=== PATIENT | female | born 1965 | race African-American/Black ===

== ENCOUNTER → 2016-10-19 | Outpatient (CLI) | payer MEDICARE, MEDICAID ==
[2016-10-19 09:40] LABS: HEMATOCRIT 35.9 % (36.0-47.0); HEMOGLOBIN 11.9 g/dL (12.0-15.5); HGB HCT DIFFERENCE -0.2; MEAN CORPUSCULAR HEMOGLOBIN 27.2 pg (27.0-33.4); MEAN CORPUSCULAR HGB CONC 33.2 g/dL (32.0-36.0); MEAN CORPUSCULAR VOLUME 82 fl (80-97); RED BLOOD COUNT 4.39 10^6/uL (3.72-5.28); RED CELL DISTRIBUTION WIDTH 13.7 % (11.5-14.0); WHITE BLOOD COUNT 10.8 10^3/uL (4.0-10.5)
== END ==
LOC: OD 08:04
PROVIDERS: ATTEND Specialist
DX: G40.89 Other seizures (principal); Z79.899 Other long term (current) drug therapy
CPT/HCPCS: 36415; 80164; 85027

== ENCOUNTER → 2017-02-18 | Outpatient (CLI) | payer MEDICARE, MEDICAID ==
--- NOTE | 2017-02-18 08:39 | RADIOLOGY REPORT (SQ) ---
EXAM DESCRIPTION: CHEST PA/LATERAL COMPLETED DATE/TIME: 02/18/2017 7:58 am REASON FOR STUDY: ELEVATED WHITE BLOOD CELL COUNT, UNSPECIFIED COMPARISON: None. NUMBER OF VIEWS: Two view. TECHNIQUE: Frontal and lateral radiographic views of the chest acquired. LIMITATIONS: None. FINDINGS: LUNGS AND PLEURA: Minimal haziness left lower lung zone. Atelectasis infiltrate possible . Best visualized on the lateral view. MEDIASTINUM AND HILAR STRUCTURES: No masses or contour abnormalities. HEART AND VASCULATURE: Heart normal size. No evidence for failure. BONY STRUCTURES: No acute findings. HARDWARE: None. OTHER: No other significant finding. IMPRESSION: Possible minimal atelectasis or infiltrate left lower lung zone. TECHNICAL DOCUMENTATION: JOB ID: [id number] [employer]- All Rights Reserved
== END ==
LOC: OD 07:46
PROVIDERS: ATTEND Family Medicine
DX: D72.829 Elevated white blood cell count, unspecified (principal)
CPT/HCPCS: 71020

== ENCOUNTER → 2017-05-19 | Outpatient (CLI) | payer MEDICARE, MEDICAID ==
[2017-05-19 09:50] LABS: HEMATOCRIT 37.7 % (36.0-47.0); HEMOGLOBIN 12.1 g/dL (12.0-15.5); HGB HCT DIFFERENCE -1.4; MEAN CORPUSCULAR HGB CONC 32.1 g/dL (32.0-36.0); MEAN CORPUSCULAR VOLUME 84 fl (80-97); RED BLOOD COUNT 4.49 10^6/uL (3.72-5.28); RED CELL DISTRIBUTION WIDTH 13.9 % (11.5-14.0); WHITE BLOOD COUNT 17.3 10^3/uL (4.0-10.5)
== END ==
LOC: OD 08:20
PROVIDERS: ATTEND Specialist
DX: G40.89 Other seizures (principal); Z79.899 Other long term (current) drug therapy
CPT/HCPCS: 36415; 80164; 85027

== ENCOUNTER → 2017-07-11 | Outpatient (CLI) | payer MEDICARE, MEDICAID ==
[2017-07-11 13:57] LABS: ANION GAP 6 (5-19); BLOOD UREA NITROGEN 19 mg/dL (7-20); CALCIUM 10.3 mg/dL (8.4-10.2); CARBON DIOXIDE 30 mmol/L (22-30); CHLORIDE 107 mmol/L (98-107); GLUCOSE 83 mg/dL (75-110); POTASSIUM 5.1 mmol/L (3.6-5.0); SODIUM 143.2 mmol/L (137-145)
== END ==
LOC: LAB 12:55
PROVIDERS: ATTEND Physician Assistant
DX: E87.5 Hyperkalemia (principal)
CPT/HCPCS: 36415; 80048

== ENCOUNTER → 2017-10-09 | Outpatient (CLI) | payer MEDICARE, MEDICAID ==
[2017-10-09 12:44] LABS: ANION GAP 13 (5-19); BLOOD UREA NITROGEN 17 mg/dL (7-20); CARBON DIOXIDE 27 mmol/L (22-30); CHLORIDE 105 mmol/L (98-107); GLUCOSE 127 mg/dL (75-110); POTASSIUM 4.4 mmol/L (3.6-5.0); SODIUM 145.2 mmol/L (137-145)
== END ==
LOC: OD 11:27
PROVIDERS: ATTEND Family Medicine
DX: E87.5 Hyperkalemia (principal); E87.0 Hyperosmolality and hypernatremia
CPT/HCPCS: 36415; 80048

== ENCOUNTER → 2017-11-29 | Outpatient (CLI) | payer MEDICARE, MEDICAID ==
[2017-11-29 10:29] LABS: HEMATOCRIT 36.4 % (36.0-47.0); HEMOGLOBIN 11.7 g/dL (12.0-15.5); MEAN CORPUSCULAR HEMOGLOBIN 26.8 pg (27.0-33.4); MEAN CORPUSCULAR HGB CONC 32.2 g/dL (32.0-36.0); MEAN CORPUSCULAR VOLUME 83 fl (80-97); PLATELET COUNT 165 10^3/uL (150-450); RED BLOOD COUNT 4.37 10^6/uL (3.72-5.28); RED CELL DISTRIBUTION WIDTH 14.3 % (11.5-14.0); WHITE BLOOD COUNT 18.5 10^3/uL (4.0-10.5)
== END ==
LOC: OD 08:23
PROVIDERS: ATTEND Specialist
DX: G40.89 Other seizures (principal); Z79.899 Other long term (current) drug therapy
CPT/HCPCS: 36415; 80164; 85027

== ENCOUNTER → 2018-04-10 | Outpatient (CLI) | payer MEDICARE, MEDICAID ==
--- NOTE | 2018-04-10 13:47 | RADIOLOGY REPORT (SQ) ---
EXAM DESCRIPTION: KUB COMPLETED DATE/TIME: 04/10/2018 1:30 pm REASON FOR STUDY: GROSS HEMATURIA R31.0 GROSS HEMATURIA COMPARISON: None. NUMBER OF VIEWS: One view. TECHNIQUE: Supine radiographic image of the abdomen acquired. LIMITATIONS: None. FINDINGS: BOWEL GAS PATTERN: Gas pattern is nonspecific. There is large amount of stool throughout the colon consistent with constipation. CALCIFICATIONS: No suspicious calcifications. SOFT TISSUES: No gross mass or suggestion of organomegaly. HARDWARE: None in the abdomen. BONES: No acute fracture. No worrisome bone lesions. OTHER: No other significant finding. IMPRESSION: Constipation. No other significant findings. TECHNICAL DOCUMENTATION: JOB ID: [id number] [employer]- All Rights Reserved Reading location - IP/workstation name: [email or web address]
[2018-04-10 13:53] LABS: HEMATOCRIT 35.6 % (36.0-47.0); HEMOGLOBIN 11.7 g/dL (12.0-15.5); MEAN CORPUSCULAR HEMOGLOBIN 27.4 pg (27.0-33.4); MEAN CORPUSCULAR VOLUME 83 fl (80-97); PLATELET COUNT 120 10^3/uL (150-450); RED BLOOD COUNT 4.28 10^6/uL (3.72-5.28); RED CELL DISTRIBUTION WIDTH 13.9 % (11.5-14.0); WHITE BLOOD COUNT 17.9 10^3/uL (4.0-10.5)
[2018-04-10 14:49] LABS: ABSOLUTE MONOCYTES # (MANUAL) 0.5 10^3/uL (0.1-1.4); ABSOLUTE NEUTROPHILS# (MANUAL) 3.4 10^3/uL (1.7-8.2); BAND NEUTROPHILS % (MANUAL) 1 % (3-5); BASOPHILS % (MANUAL) 0 % (0-2); EOSINOPHILS % (MANUAL) 0 % (0-6); MONOCYTES % (MANUAL) 3 % (3-13); SEGMENTED NEUTROPHILS % (MAN) 18 % (42-78); TOTAL CELLS COUNTED 100
[2018-04-10 14:52] LABS: HYPERSEGMENTED NEUTROPHILS PRESENT; LYMPHOCYTES % (MANUAL) 77 % (13-45); PLATELET COMMENT DECREASED
[2018-04-10 14:53] LABS: HYPOCHROMASIA SLIGHT; POLYCHROMASIA SLIGHT
[2018-04-13 11:31] LABS: PATH REVIEW PATHOLOGIST REVIEWED
== END ==
LOC: OD 12:47
PROVIDERS: ATTEND Physician Assistant
DX: R31.0 Gross hematuria (principal)
CPT/HCPCS: 36415; 74018; 85025

== ENCOUNTER 2018-04-11 09:28 | Emergency (ER) | payer MEDICARE, MEDICAID ==
[2018-04-11] MEDS ORDERED: IBUPROFEN 800 MG TABLET PO ONE (09:53)
--- NOTE | 2018-04-11 11:11 | ER Document Report ---
HPI - HPI Patient complains to provider of: L ankle injury Onset: Yesterday Onset/Duration: Sudden Quality of pain: Achy Pain Level: 5 Context: Pt presents c/o left ankle pain with swelling. Pt had a seizure yesterday and her mother attempted to help her to the floor. Mother states that ankle likely got twisted when she was having her seizure. 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 Patient does have a history of seizure disorder as well as cerebral palsy. Mother states that patient is going through menopause which is affecting how frequent she is having seizures and that this is her first seizure this month although patient typically gets 3 a month. Patient without any head injury, fever or recent illness. Exacerbated by: Movement Relieved by: Denies Similar symptoms previously: Yes Recently seen / treated by doctor: No - ROS ROS below otherwise negative: Yes Systems Reviewed and Negative: Yes All other systems reviewed and negative - CONSTITUTIONAL Constitutional: DENIES: Fever - NEURO Neurology: DENIES: Headache - GASTROINTESTINAL Gastrointestinal: DENIES: Patient vomiting - REPRODUCTIVE Reproductive: DENIES: : - MUSCULOSKELETAL Musculoskeletal: REPORTS: Extremity pain - left ankle with daniel wrap, Swelling - DERM Skin Color: Normal Skin Problems: None Past Medical History - General Information source: Parent Cannot obtain history due to: Mentally challenged - Social History Smoking Status: Never Smoker Frequency of alcohol use: None Drug Abuse: None Lives with: Family Family History: CAD, CVA, Hypertension, Malignancy Patient has suicidal ideation: No Patient has homicidal ideation: No - Medical History Medical History: Other - Cerebral palsy Neurological Medical History: Reports: Hx Seizures Renal/ Medical History: Denies: Hx Peritoneal Dialysis Musculoskeletal Medical History: Reports Hx Arthritis Surgical Hx: Negative - Immunizations Hx Diphtheria, Pertussis, Tetanus Vaccination: Yes Vertical Provider Document - CONSTITUTIONAL Agree With Documented VS: Yes Exam Limitations: No Limitations General Appearance: WD/WN, No Apparent Distress - INFECTION CONTROL TRAVEL OUTSIDE OF THE [place] IN LAST 30 DAYS: No - HEENT HEENT: Atraumatic, Normocephalic - NECK Neck: Normal Inspection - RESPIRATORY Respiratory: Breath Sounds Normal, No Respiratory Distress - CARDIOVASCULAR Cardiovascular: Regular Rate, Regular Rhythm Pulses: Normal: Dorsalis pedis - BACK Back: Normal Inspection - MUSCULOSKELETAL/EXTREMETIES Musculoskeletal/Extremeties: MAEW, Tender - Left ankle tenderness over bilateral malleolar area with 2+ edema, Edema, Eccymosis - NEURO Level of Consciousness: Awake, Alert, Appropriate Motor/Sensory: No Motor Deficit - DERM Integumentary: Warm, Dry Course - Vital Signs Vital signs: Temp Pulse Resp BP Pulse Ox 97.8 F 85 16 124/53 L 98 04/11/18 09:33 04/11/18 09:33 04/11/18 09:33 04/11/18 09:33 04/11/18 09:33 - Diagnostic Test Radiology reviewed: Image reviewed, Reports reviewed Procedures - Immobilization Left Ankle Pre-Proc Neuro Vasc Exam: Normal Immobilizer type: Posterior ankle Performed by: PCT Post-Proc Neuro Vasc Exam: Normal Alignment checked and good: Yes Discharge - Discharge Clinical Impression: Left fibular fracture Qualifiers: Encounter type: initial encounter Fibula location: distal Fracture type: closed Fracture morphology: unspecified fracture morphology Qualified Code(s): S82.832A - Other fracture of upper and lower end of left fibula, initial encounter for closed fracture Condition: Stable Disposition: HOME, SELF-CARE Instructions: Fracture ([facility]), Ice & Elevation ([facility]), Splint Precautions ([facility]) Additional Instructions: Return immediately for any new or worsening symptoms Followup with your primary care provider, call tomorrow to make a followup appointment Follow-up with your orthopedic surgeon for recheck, call Friday for an appointment time Prescriptions: Naproxen [Naprosyn 250 Nmg Tablet] 1 tab PO BID #14 tablet Referrals: MARYJANE SHIELDS PA [Primary Care Provider] - 04/13/18 FLORENCE SCHULER DPM [NO LOCAL MD] - 04/13/18
--- NOTE | 2018-04-11 11:14 | RADIOLOGY REPORT (SQ) ---
EXAM DESCRIPTION: ANKLE LEFT COMPLETE COMPLETED DATE/TIME: 04/11/2018 10:38 am REASON FOR STUDY: ankle injury after seizure COMPARISON: 11/20/2012 NUMBER OF VIEWS: Three views. TECHNIQUE: AP, lateral, and oblique radiographic images acquired of the left ankle. LIMITATIONS: None. FINDINGS: MINERALIZATION: Osteopenia. BONES: Chronic fracture deformity of the distal fibula and medial malleolus no acute fracture. Fract ure line of the distal fibula remains visible. Unchanged asymmetric widening of the medial ankle mor tise. Chronic deformity of the talar dome. 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 JOINTS: No effusions. SOFT TISSUES: Severe soft tissue swelling the ankle. No radiopaque foreign body. No subcutaneous ga s per OTHER: No other significant finding. IMPRESSION: 1. No acute fracture or dislocation of the left ankle. Severe soft tissue swelling. 2. 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 Old fracture of the distal malleolus. 3. Unchanged disruption of the ankle mortise. TECHNICAL DOCUMENTATION: JOB ID: [id number] [employer]- All Rights Reserved Reading location - IP/workstation name: [email or web address]
[2018-04-11 12:15] VITALS: BP 133/61
== END 2018-04-11 12:15 | disposition home or self-care (01) ==
LOC: ER 09:28
DX: S82.402A Unspecified fracture of shaft of left fibula, initial encounter for closed fracture (principal); X58.XXXA Exposure to other specified factors, initial encounter; G80.9 Cerebral palsy, unspecified; Z78.0 Asymptomatic menopausal state
CPT/HCPCS: 99283; 73610; 29515; A9270

== ENCOUNTER → 2018-06-01 | Outpatient (CLI) | payer MEDICARE, MEDICAID ==
[2018-06-01 08:50] LABS: HEMATOCRIT 35.6 % (36.0-47.0); HEMOGLOBIN 11.6 g/dL (12.0-15.5); MEAN CORPUSCULAR HEMOGLOBIN 26.9 pg (27.0-33.4); MEAN CORPUSCULAR HGB CONC 32.5 g/dL (32.0-36.0); MEAN CORPUSCULAR VOLUME 83 fl (80-97); PLATELET COUNT 148 10^3/uL (150-450); RED BLOOD COUNT 4.31 10^6/uL (3.72-5.28); RED CELL DISTRIBUTION WIDTH 14.5 % (11.5-14.0); WHITE BLOOD COUNT 14.5 10^3/uL (4.0-10.5)
[2018-06-01 09:25] LABS: ABSOLUTE MONOCYTES # (MANUAL) 0.1 10^3/uL (0.1-1.4); ABSOLUTE NEUTROPHILS# (MANUAL) 2.3 10^3/uL (1.7-8.2); BASOPHILS % (MANUAL) 0 % (0-2); EOSINOPHILS % (MANUAL) 0 % (0-6); MONOCYTES % (MANUAL) 1 % (3-13); SEGMENTED NEUTROPHILS % (MAN) 16 % (42-78); TOTAL CELLS COUNTED 100
[2018-06-01 09:28] LABS: ANISOCYTOSIS SLIGHT; LYMPHOCYTES % (MANUAL) 79 % (13-45); OVALOCYTES SLIGHT; PLATELET COMMENT DECREASED; POIKILOCYTOSIS SLIGHT; SMUDGE CELLS PRESENT; TEAR DROP CELLS SLIGHT
== END ==
LOC: OD 07:46
PROVIDERS: ATTEND Specialist
DX: G40.309 Generalized idiopathic epilepsy and epileptic syndromes, not intractable, without status epilepticus (principal); Z79.899 Other long term (current) drug therapy
CPT/HCPCS: 36415; 80164; 85025

== ENCOUNTER 2018-06-08 22:22 | Emergency (ER) | payer MEDICARE, MEDICAID ==
--- NOTE | 2018-06-08 23:03 | ER Document Report ---
ED General - General Chief Complaint: Hand Pain Stated Complaint: HAND PAIN Time Seen by Provider: 06/08/18 22:48 Notes: Patient is a 52-year-old female with cerebral palsy and seizure disorder that presents to the emergency department for chief complaint of head injury and hand pain. Mother providing history as a bedside, states that she noticed bruising on the patient's right forehead, and the backside of her right hand. She is not sure where this came from. She did not witness the seizure today, although the patient does seem to have 3 seizures on a monthly basis. She states it is possible that she had a seizure in the evening, the patient is not aware and does not remember having a seizure. She does not member hitting her head or hand. Patient is a poor historian given history of cerebral palsy as well. She does states she has pain in the back of her right hand, and the side of the head, but denies headache. She denies any blurred vision, or weakness or numbness in any of her arms or legs. She rates the pain in her hand at this time is a 2 out of 10, describes as an aching sensation, and constant. Past Medical History: Seizure disorder, cerebral palsy Past Surgical History: Reviewed and not pertinent to presentation Social History: Lives at home with family, no tobacco, alcohol or drug use. Family History: Reviewed and noncontributory for presenting illness Allergies: Reviewed, see documented allergy list. REVIEW OF SYSTEMS: Other than noted above, the 12 point review of systems was reviewed with the patient and were negative, all pertinent findings are included in the HPI. PHYSICAL EXAMINATION: Vital signs reviewed, nursing noted reviewed. GENERAL: Well-appearing, well-nourished and in no acute distress. HEAD: There is a small area of ecchymosis measuring 2-1/2 cm by 2-1/2 centimeters, just superior to the patient's right eyebrow, mild tenderness to palpation, without step-off or deformity, normocephalic. EYES: Eyes appear normal, extraocular movements intact, sclera anicteric, conjunctiva are normal. PERRLA ENT: nares patent, oropharynx clear without exudates. Moist mucous membranes. NECK: Normal range of motion, supple without lymphadenopathy, no midline tenderness LUNGS: Breath sounds clear to auscultation bilaterally and equal. No wheezes rales or rhonchi. HEART: Regular rate and rhythm without murmurs ABDOMEN: Soft, nontender, normoactive bowel sounds. No rebound, guarding, or rigidity. No masses appreciated. EXTREMITIES: Mild tenderness to palpation over the dorsal aspect of the third metacarpal phalangeal joint of the right hand, there is a small area of ecc hymosis over this area, patient has excellent range of motion, no obvious deformity. Strength intact distally, sensation intact distally, cap refill less than 3 seconds in all digits. The rest of her extremity is grossly unremarkable, and nontender, good range of motion, no pitting or edema. NEUROLOGICAL: No focal neurological deficits. Moves all extremities spontaneously Motor and sensory grossly intact on exam. PSYCH: Normal mood, normal affect. SKIN: Warm, Dry, normal turgor, no rashes or lesions noted on exposed skin TRAVEL OUTSIDE OF THE [place] IN LAST 30 DAYS: No - Related Data Allergies/Adverse Reactions: No Known Allergies Allergy (Verified 04/11/18 09:29) Past Medical History - Social History Smoking Status: Never Smoker Chew tobacco use (# tins/day): No Frequency of alcohol use: None Drug Abuse: None Family History: CAD, CVA, Hypertension, Malignancy Patient has suicidal ideation: No Patient has homicidal ideation: No Neurological Medical History: Reports: Hx Seizures Renal/ Medical History: Denies: Hx Peritoneal Dialysis Musculoskeletal Medical History: Reports Hx Arthritis - Immunizations Hx Diphtheria, Pertussis, Tetanus Vaccination: Yes Physical Exam - Vital signs Vitals: Temp Pulse Resp BP Pulse Ox 97.7 F 77 14 139/69 H 99 06/08/18 22:30 06/08/18 22:30 06/08/18 22:30 06/08/18 22:30 06/08/18 22:30 Course - Re-evaluation Re-evalutation: Patient appears well on exam, not complaining of significant pain, and appeared rather comfortable, will obtain CT of the head to evaluate for any possible intracranial injury as she is on aspirin, and unknown cause of her injury, and x-ray of the hand, if unremarkable, will be able to discharge the patient home. She is given Tylenol for pain. CT of the head was obtained and negative for any acute intracranial abnormality, and x-ray of the hand was negative as well. I discussed with the patient's mother who is at bedside the results of testing, and advised Tylenol for home, they were agreeable with this plan of care, advised that she had any worsening symptoms, that she could return to the emergency department at any time. They are agreeable with this, and discharged home. - Vital Signs Vital signs: Temp Pulse Resp BP Pulse Ox 98.0 F 66 17 128/57 H 97 06/09/18 00:46 06/09/18 00:46 06/09/18 00:46 06/09/18 00:46 06/09/18 00:46 Discharge - Discharge Clinical Impression: Head injury Qualifiers: Encounter type: initial encounter Qualified Code(s): S09.90XA - Unspecified injury of head, initial encounter Hand injury Qualifiers: Encounter type: initial encounter Laterality: right Qualified Code(s): S69.91XA - Unspecified injury of right wrist, hand and finger(s), initial encounter Condition: Stable Disposition: HOME, SELF-CARE Instructions: Head Injury Precautions ([facility]) Additional Instructions: You can give 500 to 650mg of tylenol every 6 hours as needed for pain. Referrals: MICHEL DEWITT MD [NO LOCAL MD] - Follow up in 3-5 days
[2018-06-08] MEDS ORDERED: ACETAMINOPHEN 325 MG TABLET PO ONE (23:04)
--- NOTE | 2018-06-08 23:30 | RADIOLOGY REPORT (SQ) ---
EXAM DESCRIPTION: XR HAND 3 OR MORE VIEWS COMPLETED DATE/TME: 06/08/2018 23:04 CLINICAL HISTORY: 52 years, Female, right hand injury COMPARISON: None. NUMBER OF VIEWS: 3 TECHNIQUE: 3 view right hand LIMITATIONS: None. FINDINGS: Negative for acute fracture or dislocation. Mild degenerative changes of the hand and wrist. Questionable old fracture of the ulnar styloid. IMPRESSION: No acute osseous abnormality. copyright 2010 [employer]- All Rights Reserved
--- NOTE | 2018-06-08 23:39 | RADIOLOGY REPORT (SQ) ---
EXAM DESCRIPTION: CT HEAD WITHOUT IV CONTRAST COMPLETED DATE/TME: 06/08/2018 23:03 CLINICAL HISTORY: 52 years, Female, head injury COMPARISON: None. TECHNIQUE: 199 Images stored on PACS. All CT scanners at this facility use dose modulation, iterative reconstruction, and/or weight based dosing when appropriate to reduce radiation dose to as low as reasonably achievable (ALARA). [facility]: Dose Right [facility]: CareDose [facility]: Dose Right [facility]: Teradose 4D [facility]: [employer] LIMITATIONS: None. FINDINGS: The globes are intact. The paranasal sinuses and mastoid air cells are unremarkable. No displaced or depressed skull fracture. No intra or extra-axial hemorrhage. CT is limited for evaluation of acute infarct. No CT evidence for large or territorial acute infarct. Mild diffuse atrophy. No mass or midline shift. IMPRESSION: Mild diffuse atrophy. Negative for acute intracranial abnormality. TECHNICAL DOCUMENTATION: Quality ID # [id number]: Final reports with documentation of one or more dose reduction techniques (e.g., Automated exposure control, adjustment of the mA and/or kV according to patient size, use of iterative reconstruction technique) copyright 2011 [employer]- All Rights Reserved
[2018-06-09 00:47] VITALS: BP 128/57
== END 2018-06-09 00:47 | disposition home or self-care (01) ==
LOC: ER 22:22
DX: S09.90XA Unspecified injury of head, initial encounter (principal); S69.91XA Unspecified injury of right wrist, hand and finger(s), initial encounter; X58.XXXA Exposure to other specified factors, initial encounter; G40.909 Epilepsy, unspecified, not intractable, without status epilepticus; G80.9 Cerebral palsy, unspecified
CPT/HCPCS: 99284; 73130; 70450; A9270

== ENCOUNTER → 2018-07-22 | Outpatient (CLI) | payer MEDICARE, MEDICAID ==
--- NOTE | 2018-07-22 14:46 | RADIOLOGY REPORT (SQ) ---
EXAM DESCRIPTION: MRI LT LOWER JOINT WITHOUT COMPLETED DATE/TIME: 07/22/2018 1:37 pm REASON FOR STUDY: PAIN IN LEFT KNEE M25.562 PAIN IN LEFT KNEE COMPARISON: None. TECHNIQUE: Leftknee images acquired and stored on PACS. Multiplanar images include fat sensitive se quences as T1, water sensitive sequences as FST2 or STIR, cartilage sensitive sequences as FSPD, and gradient echo sequences. LIMITATIONS: None. FINDINGS: JOINT AND BURSAE: Mild effusion. Circumscribed calcified nodule measuring 8 mm along the medial patellofemoral articulation, either intra-articular or adherent to the synovial surface. BONE CORTEX AND MARROW: Diffuse contusion edema throughout the lateral tibial plateau with probable n ondepressed posterior-lateral subchondral fracture. Marrow signal otherwise looks normal. ACL: Hyperintensity throughout the distal ACL. At least some fibers remain intact. PCL: Intact. MCL: Intact. No periligamentous edema or fluid. LCL: Edema and some attenuation of the proximal aspect of the fibular collateral ligament. Some fibe rs remain intact. MEDIAL MENISCUS: Diminutive appearance but no definitive tear or extrusion. LATERAL MENISCUS: Possible degenerative signal in the anterior horn. MEDIAL COMPARTMENT: No focal chondral lesions. LATERAL COMPARTMENT: No focal chondral lesions. PATELLA: No chondromalacia. No subchondral cysts. Medial and lateral retinacula intact. EXTENSOR MECHANISM: Intact. Quadriceps and patella tendons normal. SOFT TISSUES: Small Jesus's cyst. OTHER: No other significant finding. IMPRESSION: 1. Contusion in mild nondepressed subchondral fracture throughout the lateral tibial plateau. 2. ACL and lateral collateral ligament sprains. At least some fibers remain intact in both these lig aments. 3. Other findings as above. TECHNICAL DOCUMENTATION: JOB ID: [id number]- All Rights Reserved Reading location - IP/workstation name: [email or web address]
== END ==
LOC: RAD 12:38
PROVIDERS: ATTEND Physician Assistant
DX: M25.562 Pain in left knee (principal)

== ENCOUNTER → 2018-11-27 | Outpatient (CLI) | payer MEDICARE, MEDICAID ==
[2018-11-27 08:57] LABS: HEMATOCRIT 33.5 % (36.0-47.0); HEMOGLOBIN 10.8 g/dL (12.0-15.5); MEAN CORPUSCULAR HGB CONC 32.3 g/dL (32.0-36.0); MEAN CORPUSCULAR VOLUME 81 fl (80-97); PLATELET COUNT 225 10^3/uL (150-450); RED BLOOD COUNT 4.15 10^6/uL (3.72-5.28); RED CELL DISTRIBUTION WIDTH 14.4 % (11.5-14.0); WHITE BLOOD COUNT 12.9 10^3/uL (4.0-10.5)
[2018-11-27 09:24] LABS: ABSOLUTE LYMPHOCYTES# (MANUAL) 10.3 10^3/uL (0.5-4.7); ABSOLUTE MONOCYTES # (MANUAL) 0.5 10^3/uL (0.1-1.4); ABSOLUTE NEUTROPHILS# (MANUAL) 2.1 10^3/uL (1.7-8.2); BASOPHILS % (MANUAL) 0 % (0-2); EOSINOPHILS % (MANUAL) 0 % (0-6); LYMPHOCYTES % (MANUAL) 80 % (13-45); MONOCYTES % (MANUAL) 4 % (3-13); NUCLEATED RED BLOOD CELLS 1 /100 WBC (0); SEGMENTED NEUTROPHILS % (MAN) 16 % (42-78); TOTAL CELLS COUNTED 100
[2018-11-27 09:26] LABS: ANISOCYTOSIS SLIGHT; OVALOCYTES SLIGHT; PLATELET COMMENT ADEQUATE; PLATELET LARGE PRESENT; POIKILOCYTOSIS SLIGHT; POLYCHROMASIA SLIGHT
== END ==
LOC: OD 07:42
PROVIDERS: ATTEND Specialist
DX: G40.309 Generalized idiopathic epilepsy and epileptic syndromes, not intractable, without status epilepticus (principal); Z79.899 Other long term (current) drug therapy
CPT/HCPCS: 36415; 80164; 85025

== ENCOUNTER → 2019-05-28 | Outpatient (CLI) | payer MEDICARE, MEDICAID ==
[2019-05-28 09:42] LABS: HEMATOCRIT 37.4 % (36.0-47.0); HEMOGLOBIN 12.1 g/dL (12.0-15.5); MEAN CORPUSCULAR HEMOGLOBIN 26.5 pg (27.0-33.4); MEAN CORPUSCULAR HGB CONC 32.3 g/dL (32.0-36.0); MEAN CORPUSCULAR VOLUME 82 fl (80-97); PLATELET COUNT 172 10^3/uL (150-450); RED BLOOD COUNT 4.55 10^6/uL (3.72-5.28); WHITE BLOOD COUNT 21.9 10^3/uL (4.0-10.5)
[2019-05-28 10:35] LABS: ABSOLUTE LYMPHOCYTES# (MANUAL) 18.2 10^3/uL (0.5-4.7); ABSOLUTE MONOCYTES # (MANUAL) 0.9 10^3/uL (0.1-1.4); BASOPHILS % (MANUAL) 0 % (0-2); EOSINOPHILS % (MANUAL) 1 % (0-6); LYMPHOCYTES % (MANUAL) 83 % (13-45); MONOCYTES % (MANUAL) 4 % (3-13); SEGMENTED NEUTROPHILS % (MAN) 12 % (42-78); TOTAL CELLS COUNTED 100
[2019-05-28 10:36] LABS: PLATELET COMMENT ADEQUATE; RBC MORPHOLOGY COMMENT NORMO-CYTIC/CHROMIC; SMUDGE CELLS PRESENT
== END ==
LOC: OD 08:20
PROVIDERS: ATTEND Specialist
DX: G40.309 Generalized idiopathic epilepsy and epileptic syndromes, not intractable, without status epilepticus (principal); Z79.899 Other long term (current) drug therapy
CPT/HCPCS: 36415; 80164; 85025

== ENCOUNTER → 2019-11-23 | Outpatient (CLI) | payer MEDICARE, MEDICAID ==
[2019-11-23 08:49] LABS: HEMATOCRIT 34.7 % (36.0-47.0); HEMOGLOBIN 11.3 g/dL (12.0-15.5); MEAN CORPUSCULAR HGB CONC 32.6 g/dL (32.0-36.0); MEAN CORPUSCULAR VOLUME 83 fl (80-97); PLATELET COUNT 166 10^3/uL (150-450); RED BLOOD COUNT 4.19 10^6/uL (3.72-5.28); RED CELL DISTRIBUTION WIDTH 14.4 % (11.5-14.0); WHITE BLOOD COUNT 24.6 10^3/uL (4.0-10.5)
[2019-11-23 09:05] LABS: ABSOLUTE LYMPHOCYTES# (MANUAL) 21.4 10^3/uL (0.5-4.7); ABSOLUTE MONOCYTES # (MANUAL) 0.5 10^3/uL (0.1-1.4); BASOPHILS % (MANUAL) 0 % (0-2); EOSINOPHILS % (MANUAL) 0 % (0-6); LYMPHOCYTES % (MANUAL) 87 % (13-45); MONOCYTES % (MANUAL) 2 % (3-13); SEGMENTED NEUTROPHILS % (MAN) 11 % (42-78); TOTAL CELLS COUNTED 100
[2019-11-23 09:07] LABS: ANISOCYTOSIS SLIGHT; PLATELET COMMENT ADEQUATE; POLYCHROMASIA SLIGHT
== END ==
LOC: OD 07:52
PROVIDERS: ATTEND Specialist
DX: G40.309 Generalized idiopathic epilepsy and epileptic syndromes, not intractable, without status epilepticus (principal); Z79.899 Other long term (current) drug therapy
CPT/HCPCS: 36415; 80164; 85025

== ENCOUNTER → 2019-11-29 | Outpatient (CLI) | payer MEDICARE, MEDICAID ==
--- NOTE | 2019-11-29 12:00 | RADIOLOGY REPORT (SQ) ---
EXAM DESCRIPTION: U/S ABDOMEN COMPLETE W/O DOP IMAGES COMPLETED DATE/TIME: 11/29/2019 11:06 am REASON FOR STUDY: (K76.0)FATTY (CHANGE OF) LIVER, NOT ELSEWHERE CLASSIFIED K76.0 FATTY (CHANGE OF) LIVER, NOT ELSEWHERE CLASSIFIED COMPARISON: None. TECHNIQUE: Dynamic and static grayscale images acquired of the abdomen and recorded on PACS. Additio nal selected color Doppler and spectral images recorded. Note: Study does not meet criteria for complete doppler/duplex scan LIMITATIONS: None. FINDINGS: PANCREAS: The head and body of the pancreas are of normal echogenicity. The tail is obsc ured by overlying bowel gas. LIVER: The liver measures 14.4 cm in length, normal size. No masses. Echotexture normal. LIVER VASCULATURE: Normal directional flow of the main portal vein and hepatic veins. GALLBLADDER: No stones. The gallbladder wall measures 3.4 mm, mild diffuse gallbladder wall thickeni ng. No pericholecystic fluid. ULTRASOUND-DETECTED VALENCIA'S SIGN: Negative. INTRAHEPATIC DUCTS AND COMMON DUCT: CBD measures 2.7 mm in diameter, normal. The intrahepatic ducts normal caliber. No filling defects. INFERIOR VENA CAVA: Normal flow. AORTA: No aneurysm. RIGHT KIDNEY: The right kidney measures 9.4 x 4.9 x 4.6 cm, normal size. Normal echogenicity. A 2 .5 x 2.1 x 1.8 cm cyst. No hydronephrosis. No calcifications. LEFT KIDNEY: The left kidney measures 9.7 x 4.8 x 4.9 cm, normal size. Normal echogenicity. No s olid or suspicious masses. No hydronephrosis. No calcifications. SPLEEN: The spleen measures 7.9 cm in length, normal size. No solid masses. PERITONEAL AND PLEURAL SPACES: No ascites or effusions. OTHER: No other significant finding. IMPRESSION: 1. The tail of the pancreas is obscured by overlying bowel gas. 2. Right renal cyst. 3. Mild diffuse thickening of the gallbladder wall. No evidence of pericholecystic fluid or gallston es. TECHNICAL DOCUMENTATION: JOB ID: [id number] 2010 [employer]- All Rights Reserved Reading location - IP/workstation name: [email or web address]
== END ==
LOC: RAD 10:17
PROVIDERS: ATTEND Physician Assistant
DX: K76.0 Fatty (change of) liver, not elsewhere classified (principal); N28.1 Cyst of kidney, acquired
CPT/HCPCS: 76700

== ENCOUNTER → 2020-03-13 | Outpatient (CLI) | payer MEDICARE, MEDICAID ==
--- NOTE | 2020-03-13 14:43 | RADIOLOGY REPORT (SQ) ---
EXAM DESCRIPTION: U/S THYROID/SFT TISS HD NECK IMAGES COMPLETED DATE/TIME: 03/13/2020 2:16 pm REASON FOR STUDY: (E07.89)OTHER SPECIFIED DISORDERS OF THYROID E07.89 OTHER SPECIFIED DISORDERS OF THYROID COMPARISON: None. TECHNIQUE: Dynamic and static sapp-scale images acquired of the thyroid gland. Selected additional c olor/power Doppler images recorded. All images stored to PACS. LIMITATIONS: None. FINDINGS: RIGHT LOBE: Normal size, 3.3 cm. Homogeneous echotexture. No cystic or solid masses. LEFT LOBE: Normal size, 3.6 cm. Homogeneous echotexture. No cystic or solid masses. ISTHMUS: Normal size, 4 mm. Homogeneous echotexture. No cystic or solid masses. OTHER: No other significant finding. IMPRESSION: NORMAL THYROID ULTRASOUND. TECHNICAL DOCUMENTATION: JOB ID: [id number] 2010 [employer]- All Rights Reserved Reading location - IP/workstation name: [email or web address]
== END ==
LOC: RAD 13:48
PROVIDERS: ATTEND Physician Assistant
DX: E07.89 Other specified disorders of thyroid (principal)
CPT/HCPCS: 76536

== ENCOUNTER 2020-05-07 14:13 | Emergency (ER) | payer MEDICARE, MEDICAID ==
--- NOTE | 2020-05-07 15:52 | ER Document Report ---
ED Medical Screen (RME) - General Chief Complaint: Rib Pain Stated Complaint: COUGH, NOSE BLEED, FEVER Time Seen by Provider: 05/07/20 15:41 Primary Care Provider: MARYJANE PERKINS PA-C [Primary Care Provider] - Follow up as needed TRAVEL OUTSIDE OF THE [place] IN LAST 30 DAYS: No - HPI Notes: Patient is a 54-year-old female with a history of a seizure disorder who presents for fever for the past 3 days. Mother states patient had a seizure a week ago and fell and hit her right chest. She was seen at urgent care the following day and diagnosed with a hairline rib fracture. She was instructed to come to the ED if the patient began to have fever or cough. Mother states that the patient had a fever of 102 F last night and has started to have a cough. - Related Data Allergies/Adverse Reactions: No Known Allergies Allergy (Verified 05/07/20 15:34) Home Medications: depakote. vimpat. keppra. famotidine. asa. vitamin Past Medical History - Social History Chew tobacco use (# tins/day): No Frequency of alcohol use: None Drug Abuse: None Neurological Medical History: Reports: Hx Seizures Renal/ Medical History: Denies: Hx Peritoneal Dialysis Musculoskeltal Medical History: Reports Hx Arthritis - Immunizations Hx Diphtheria, Pertussis, Tetanus Vaccination: Yes Physical Exam - Vital signs Vitals: Temp Pulse Resp BP Pulse Ox 99.2 F 94 18 121/59 L 99 05/07/20 14:22 05/07/20 14:22 05/07/20 14:22 05/07/20 14:22 05/07/20 14:22 - Respiratory Respiratory status: No respiratory distress Breath sounds: Normal Course - Re-evaluation Re-evalutation: I have greeted and performed a rapid initial assessment of this patient. A comprehensive ED assessment and evaluation of the patient, analysis of test results and completion of medical decision making process will be conducted by an additional ED providers. - Vital Signs Vital signs: Temp Pulse Resp BP Pulse Ox 99.2 F 94 18 121/59 L 99 05/07/20 14:22 05/07/20 14:22 05/07/20 14:22 05/07/20 14:22 05/07/20 14:22 Doctor's Discharge - Discharge Referrals: MARYJANE PERKINS PA-C [Primary Care Provider] - Follow up as needed
--- NOTE | 2020-05-07 16:44 | RADIOLOGY REPORT (SQ) ---
EXAM DESCRIPTION: CHEST SINGLE VIEW IMAGES COMPLETED DATE/TIME: 05/07/2020 4:27 pm REASON FOR STUDY: rule out pneumonia COMPARISON: 01/05/2015 TECHNIQUE: Single frontal radiographic view of the chest acquired. NUMBER OF VIEWS: One view. LIMITATIONS: None. FINDINGS: LUNGS AND PLEURA: No pneumothorax. Small area patchy consolidation at the left lateral virgilio ng base. Right lung is clear. No significant Pleural effusion. MEDIASTINUM AND HILAR STRUCTURES: No contour abnormalities. HEART AND VASCULAR STRUCTURES: Heart normal size. BONES: No acute findings. HARDWARE: None in the chest. OTHER: No other significant finding. IMPRESSION: Small area patchy consolidation at the left lateral lung base. TECHNICAL DOCUMENTATION: JOB ID: [id number] 2010 [employer]- All Rights Reserved Reading location - IP/workstation name: [email or web address]
--- NOTE | 2020-05-07 18:00 | ER Document Report ---
ED General - General Chief Complaint: Rib Pain Stated Complaint: COUGH, NOSE BLEED, FEVER Time Seen by Provider: 05/07/20 15:41 Primary Care Provider: MARYJANE PERKINS PA-C [Primary Care Provider] - Follow up as needed TRAVEL OUTSIDE OF THE [place] IN LAST 30 DAYS: No - HPI Notes: 54-year-old female presents with cough and fever. Information is primarily obtained from patient's mother. About a week ago patient had a fall from standing, she was seen at urgent care and was diagnosed with a hairline rib fracture on one of her right ribs, this was done via x-ray. As part of the return precautions, patient was instructed to go to the emergency department if she developed a cough or fever. Patient's mother states that last night she had a fever of 102 and has been coughing. Patient states that she has pain when she coughs. She has been tolerating p.o., no vomiting or diarrhea. Mother had a recent Covid test which was negative last week. She states that patient rarely ever leaves the house or goes out in public. - Related Data Allergies/Adverse Reactions: No Known Allergies Allergy (Verified 05/07/20 15:34) Home Medications: depakote. vimpat. keppra. famotidine. asa. vitamin Past Medical History - General Information source: Patient, Parent - Social History Smoking Status: Never Smoker Chew tobacco use (# tins/day): No Frequency of alcohol use: None Drug Abuse: None Family History: CAD, CVA, Hypertension, Malignancy Patient has homicidal ideation: No Neurological Medical History: Reports: Hx Seizures Renal/ Medical History: Denies: Hx Peritoneal Dialysis Musculoskeletal Medical History: Reports Hx Arthritis - Immunizations Hx Diphtheria, Pertussis, Tetanus Vaccination: Yes Review of Systems - Review of Systems Constitutional: Fever EENT: No symptoms reported Cardiovascular: denies: Chest pain Respiratory: Cough, Hurts to breathe. denies: Short of breath Gastrointestinal: No symptoms reported Genitourinary: No symptoms reported Female Genitourinary: No symptoms reported Musculoskeletal: No symptoms reported Skin: No symptoms reported Hematologic/Lymphatic: No symptoms reported Neurological/Psychological: No symptoms reported Physical Exam - Vital signs Vitals: Temp Pulse Resp BP Pulse Ox 99.2 F 94 18 121/59 L 99 05/07/20 14:22 05/07/20 14:22 05/07/20 14:22 05/07/20 14:22 05/07/20 14:22 - General General appearance: Appears well, Alert In distress: None - HEENT Head: Normocephalic, Atraumatic Extraocular movements intact: Yes Pupils: PERRL Neck: Supple - Respiratory Breath sounds: Normal - Cardiovascular Rhythm: Regular Heart sounds: Normal auscultation - Abdominal Tenderness: Nontender - Extremities General lower extremity: No: Edema - Neurological Neuro grossly intact: Yes - Psychological Associated symptoms: Normal affect - Skin Skin Temperature: Warm Course - Re-evaluation Re-evalutation: 54-year-old female presents with cough and fever. Reportedly had a fall 1 week ago and had a "hairline fracture" diagnosed via chest x-ray at an urgent care. Patient is currently afebrile and hemodynamically stable. Her lungs are clear to auscultation. She has a leukocytosis present, which was seen on multiple previous values. However her chest x-ray does demonstrate a left basilar infiltrate. Suspect that she has community-acquired pneumonia. I have less concern for Covid at this time given that she really does not leave the house and mother has been recently tested negative. Patient is appropriate for outpatient treatment. She is on multiple antiepileptics, will research in order to provide the best medicines without interactions. 05/07/20 19:06 Per [employer], azithromycin does not interact with Depakote or Vimpat Patient was given a dose of Augmentin here. She was discharged with azithromycin and Augmentin, felt the dual treatment is indicated given her comorbidities. Patient encouraged to follow-up with her primary care doctor. Return precautions given, stable at time of discharge. - Vital Signs Vital signs: Temp Pulse Resp BP Pulse Ox 100.7 F H 98 16 126/51 H 98 05/07/20 19:38 05/07/20 19:38 05/07/20 19:38 05/07/20 19:38 05/07/20 19:38 - Laboratory Result Diagrams: 05/07/20 17:46 05/07/20 17:46 Laboratory results interpreted by me: 05/07/20 05/07/20 17:46 17:46 WBC 21.9 H Hgb 11.1 L Hct 33.6 L Seg Neuts % (Manual) 20 L Band Neutrophils % 2 L Lymphocytes % (Manual) 76 H Monocytes % (Manual) 2 L Abs Lymphs (Manual) 16.6 H Sodium 133.7 L Chloride 95 L Glucose 122 H AST 47 H - Diagnostic Test Radiology reviewed: Image reviewed, Reports reviewed Discharge - Discharge Clinical Impression: CAP (community acquired pneumonia) Qualifiers: Laterality: left Lung location: lower lobe of lung Qualified Code(s): J18.9 - Pneumonia, unspecified organism Disposition: HOME, SELF-CARE Additional Instructions: Begin course of antibiotics, azithromycin and Augmentin. Please call the primary care doctor and discuss a repeat x-ray at some point this week to assure that the pneumonia is improving. Return to the emergency department for any concerning worsening symptoms. Prescriptions: Amoxicillin/Potassium Clav [Augmentin 875-125 Tablet] 1 tab PO Q12 7 Days #14 tablet Azithromycin 250 mg PO ASDIR PRN 5 Days #6 tablet PRN Reason: Referrals: MARYJANE PERKINS PA-C [Primary Care Provider] - Follow up as needed
[2020-05-07 18:21] LABS: HEMATOCRIT 33.6 % (36.0-47.0); HEMOGLOBIN 11.1 g/dL (12.0-15.5); MEAN CORPUSCULAR HEMOGLOBIN 27.3 pg (27.0-33.4); MEAN CORPUSCULAR VOLUME 83 fl (80-97); PLATELET COUNT 154 10^3/uL (150-450); RED BLOOD COUNT 4.06 10^6/uL (3.72-5.28); WHITE BLOOD COUNT 21.9 10^3/uL (4.0-10.5)
[2020-05-07 18:36] LABS: ALBUMIN 4.2 g/dL (3.5-5.0); ALKALINE PHOSPHATASE 94 U/L (38-126); ANION GAP 13 (5-19); ASPARTATE AMINO TRANSFERASE 47 U/L (14-36); BILIRUBIN,DIRECT 0.2 mg/dL (0.0-0.4); BILIRUBIN,TOTAL 0.5 mg/dL (0.2-1.3); BLOOD UREA NITROGEN 14 mg/dL (7-20); CALCIUM 10.1 mg/dL (8.4-10.2); CARBON DIOXIDE 26 mmol/L (22-30); CHLORIDE 95 mmol/L (98-107); GLUCOSE 122 mg/dL (75-110); POTASSIUM 4.6 mmol/L (3.6-5.0); TOTAL PROTEIN 7.9 g/dL (6.3-8.2)
[2020-05-07 18:46] LABS: ABSOLUTE LYMPHOCYTES# (MANUAL) 16.6 10^3/uL (0.5-4.7); ABSOLUTE MONOCYTES # (MANUAL) 0.4 10^3/uL (0.1-1.4); BAND NEUTROPHILS % (MANUAL) 2 % (3-5); BASOPHILS % (MANUAL) 0 % (0-2); EOSINOPHILS % (MANUAL) 0 % (0-6); LYMPHOCYTES % (MANUAL) 76 % (13-45); MONOCYTES % (MANUAL) 2 % (3-13); SEGMENTED NEUTROPHILS % (MAN) 20 % (42-78); TOTAL CELLS COUNTED 100
[2020-05-07 18:48] LABS: ANISOCYTOSIS SLIGHT; PLATELET COMMENT ADEQUATE
[2020-05-07] MEDS ORDERED: AMOXICILLIN TR/POT CLAVULANATE 875-125 MG TAB PO ONE (19:04)
[2020-05-07] MEDS ORDERED: ACETAMINOPHEN 325 MG TABLET PO ONE (19:32)
[2020-05-07 19:39] VITALS: BP 126/51
== END 2020-05-07 19:51 | disposition home or self-care (01) ==
LOC: ER 14:13
DX: J18.9 Pneumonia, unspecified organism (principal); S22.31XD Fracture of one rib, right side, subsequent encounter for fracture with routine healing; W19.XXXD Unspecified fall, subsequent encounter; R05 Cough; R50.9 Fever, unspecified; R07.1 Chest pain on breathing; R56.9 Unspecified convulsions; Z79.899 Other long term (current) drug therapy; Z79.82 Long term (current) use of aspirin
CPT/HCPCS: 99284; 36415; 85025; 80053; 71045; A9270; J3490

== ENCOUNTER → 2020-05-10 | Outpatient (CLI) | payer MEDICARE, MEDICAID ==
--- NOTE | 2020-05-10 11:20 | RADIOLOGY REPORT (SQ) ---
EXAM DESCRIPTION: CHEST 2 VIEWS IMAGES COMPLETED DATE/TIME: 05/10/2020 10:45 am REASON FOR STUDY: J18.9 PNEUMONIA, UNSPECIFIED ORGANISM COMPARISON: 05/07/2020 EXAM PARAMETERS: NUMBER OF VIEWS: two views TECHNIQUE: Digital Frontal and Lateral radiographic views of the chest acquired. RADIATION DOSE: NA LIMITATIONS: none FINDINGS: LUNGS AND PLEURA: Persistent mild lingular opacities, improved from prior. No new airspac e disease, pleural effusion or pneumothorax. MEDIASTINUM AND HILAR STRUCTURES: No masses or contour abnormalities. HEART AND VASCULAR STRUCTURES: Heart normal size. No evidence for failure. BONES: No acute findings. HARDWARE: None in the chest. OTHER: No other significant finding. IMPRESSION: Improved but mild residual left lingular opacities. No evidence of new cardiopulmonary process. No effusion. TECHNICAL DOCUMENTATION: JOB ID: [id number] 2010 [employer]- All Rights Reserved Reading location - IP/workstation name: [email or web address]
--- NOTE | 2020-05-10 12:24 | RADIOLOGY REPORT (SQ) ---
EXAM DESCRIPTION: HIP LEFT AP/LATERAL IMAGES COMPLETED DATE/TIME: 05/10/2020 10:45 am REASON FOR STUDY: M25.552 PAIN IN LEFT HIP M25.552 PAIN IN LEFT HIP J18.9 PNEUMONIA, UNSPECIFIED O RGANISM COMPARISON: None. NUMBER OF VIEWS: Two views. TECHNIQUE: AP pelvis and additional frog legview of the left hip. LIMITATIONS: None. FINDINGS: MINERALIZATION: Normal. LEFT HIP: No fracture or dislocation. No worrisome bone lesions. Tiny acetabular osteophytes. RIGHT HIP: No fracture or dislocation. No worrisome bone lesions. Limited views. PUBIS AND ISCHIUM: No fracture. SACRUM: No fracture or dislocation. No worrisome bone lesions. LOWER LUMBAR SPINE: No fracture or dislocation. No worrisome bone lesions. No significant disc disea se. SOFT TISSUES: No findings. OTHER: No other significant finding. IMPRESSION: No evidence of acute bony abnormality of the left hip. TECHNICAL DOCUMENTATION: JOB ID: [id number] 2010 [employer]- All Rights Reserved Reading location - IP/workstation name: [email or web address]
== END ==
LOC: RAD 10:06
PROVIDERS: ATTEND Physician Assistant
DX: J18.9 Pneumonia, unspecified organism (principal); M25.552 Pain in left hip
CPT/HCPCS: 71046

== ENCOUNTER 2020-05-12 18:07 | Emergency (ER) | payer MEDICARE, MEDICAID ==
--- NOTE | 2020-05-12 19:28 | ER Document Report ---
ED Medical Screen (RME) - General Chief Complaint: Cough Stated Complaint: COUGH Time Seen by Provider: 05/12/20 19:07 Primary Care Provider: MARYJANE PERKINS PA-C [Primary Care Provider] - Follow up as needed Mode of Arrival: Wheelchair Information source: Relative Notes: Patient is a 54-year-old female brought into emergency room by her mother with a complaint of having seizures, fever, cough, decreased appetite. Patient was seen here on 1121 diagnosed with a left lower lobe pneumonia sent home with Zithromax and Augmentin. Mother states that she has not gotten any better and she is eating less and less every day. She has increased shortness of breath as well. Patient was also found somewhere around the 15th or eighth of the month to have a right-sided rib fracture after sustaining a fall while having a seizure. According to the mother her dates are not 100% accurate she said but somewhere around the they got tested for Covid mother's test came back negative and the daughter's test i.e. the patient came back on the positive. Then she states that the health department called them yesterday and said that she was clear. She was not retested after the first initial positive. So they are back today because she is failing to thrive and not eating or drinking much fluids and increasing temperatures and shortness of breath. Physical examination shows patient to be a well-nourished 54-year-old female who is in no apparent distress on examination this evening. Cardiac: Patient displays a rate of 97 bpm on monitor no murmurs auscultated. Lungs: Bilateral breath sounds decreased throughout there is a faint end expiratory wheeze on the left lower lung area no rhonchi or rales are heard. Abdomen: Bowel sounds are present all 4 quads there is no tenderness to palpation at this time. I have greeted and performed a rapid initial assessment of this patient. A comprehensive ED assessment and evaluation of the patient, analysis of test results and completion of the medical decision making process will be conducted by additional ED providers. Dictation of this chart was performed using voice recognition software; therefore, there may be some unintended grammatical errors. TRAVEL OUTSIDE OF THE [place] IN LAST 30 DAYS: No - Related Data Allergies/Adverse Reactions: No Known Allergies Allergy (Verified 05/07/20 15:34) Past Medical History Neurological Medical History: Reports: Hx Seizures Renal/ Medical History: Denies: Hx Peritoneal Dialysis Musculoskeltal Medical History: Reports Hx Arthritis - Immunizations Hx Diphtheria, Pertussis, Tetanus Vaccination: Yes Physical Exam - Vital signs Vitals: Temp Pulse Resp BP Pulse Ox 99.1 F 97 20 123/55 L 100 05/12/20 18:15 05/12/20 18:15 05/12/20 18:15 05/12/20 18:15 05/12/20 18:15 Course - Vital Signs Vital signs: Temp Pulse Resp BP Pulse Ox 99.1 F 97 20 123/55 L 100 05/12/20 18:15 05/12/20 18:15 05/12/20 18:15 05/12/20 18:15 05/12/20 18:15 Doctor's Discharge - Discharge Referrals: MARYJANE PERKINS PA-C [Primary Care Provider] - Follow up as needed
--- NOTE | 2020-05-12 20:55 | RADIOLOGY REPORT (SQ) ---
EXAM DESCRIPTION: XR CHEST 1 VIEW COMPLETED DATE/TME: 05/12/2020 20:17 CLINICAL HISTORY: 54 years, Female, Cough/fever/Covid positive COMPARISON: May 10, 2020 NUMBER OF VIEWS: 1 TECHNIQUE: Portable AP upright view of the chest was obtained at 8:07 PM. LIMITATIONS: Low lung volumes. FINDINGS: Heart size is within normal limits. There is patchy infiltration in the right infrahilar region and left mid and lower lung zones, mild on the right and moderate on the left, overall increased from the prior exam. There is no evidence of pleural effusion or pneumothorax. No definite acute bony abnormality is seen. IMPRESSION: Worsening bilateral infiltration. copyright 2010 [employer]- All Rights Reserved
[2020-05-12 22:05] LABS: A TYPE INFLUENZA AG NEGATIVE (NEGATIVE); B INFLUENZA AG NEGATIVE (NEGATIVE)
[2020-05-12 22:08] LABS: ALBUMIN 3.2 g/dL (3.5-5.0); ALKALINE PHOSPHATASE 68 U/L (38-126); ANION GAP 9 (5-19); ASPARTATE AMINO TRANSFERASE 53 U/L (14-36); BILIRUBIN,DIRECT 0.2 mg/dL (0.0-0.4); BILIRUBIN,TOTAL 0.4 mg/dL (0.2-1.3); BLOOD UREA NITROGEN 6 mg/dL (7-20); CALCIUM 9.3 mg/dL (8.4-10.2); CARBON DIOXIDE 26 mmol/L (22-30); CHLORIDE 94 mmol/L (98-107); GLUCOSE 125 mg/dL (75-110); POTASSIUM 4.1 mmol/L (3.6-5.0); TOTAL PROTEIN 6.4 g/dL (6.3-8.2)
[2020-05-12 23:02] LABS: HEMATOCRIT 24.4 % (36.0-47.0); HEMOGLOBIN 8.7 g/dL (12.0-15.5); MEAN CORPUSCULAR HEMOGLOBIN 33.5 pg (27.0-33.4); MEAN CORPUSCULAR HGB CONC 35.6 g/dL (32.0-36.0); PLATELET COUNT 234 10^3/uL (150-450); RED BLOOD COUNT 2.59 10^6/uL (3.72-5.28); RED CELL DISTRIBUTION WIDTH 13.2 % (11.5-14.0); WHITE BLOOD COUNT 14.1 10^3/uL (4.0-10.5)
--- NOTE | 2020-05-12 23:04 | ER Document Report ---
ED General - General Chief Complaint: Cough Stated Complaint: COUGH Time Seen by Provider: 05/12/20 19:07 Primary Care Provider: MARYJANE PERKINS PA-C [PHYSICIAN BIOLOGY RESEARCH ASSISTANT] - Follow up as needed Mode of Arrival: Wheelchair Notes: Patient presents to the ER for evaluation of increased shortness of breath after being diagnosed with COVID-19 on or around 07 May. She complains of a dry cough. She has been taking azithromycin and Augmentin. Per the mother, she has not been eating or drinking today and has had diarrhea for several days. She does complain of mild generalized abdominal pain. The mother is also noticed decreased activity. Per the mother, the patient had a seizure on 04 May at which time she broke a rib on the right side. She states she did not have symptoms of COVID-19 at that time. Nursing notes reviewed and past medical, social, and family histories reviewed and validated. TRAVEL OUTSIDE OF THE [place] IN LAST 30 DAYS: No - Related Data Allergies/Adverse Reactions: No Known Allergies Allergy (Verified 05/07/20 15:34) Past Medical History - General Information source: Relative - Social History Smoking Status: Never Smoker Chew tobacco use (# tins/day): No Frequency of alcohol use: None Drug Abuse: None Lives with: Family Family History: CAD, CVA, Hypertension, Malignancy Patient has suicidal ideation: No Patient has homicidal ideation: No - Past Medical History Cardiac Medical History: Reports: None Pulmonary Medical History: Reports: None EENT Medical History: Reports: None Neurological Medical History: Reports: Hx Seizures Endocrine Medical History: Reports: None Renal/ Medical History: Reports: None. Denies: Hx Peritoneal Dialysis Malignancy Medical History: Reports: None GI Medical History: Reports: None Musculoskeletal Medical History: Reports Hx Arthritis Skin Medical History: Reports None Psychiatric Medical History: Reports: None Traumatic Medical History: Reports: None Infectious Medical History: Reports: None Past Surgical History: Reports: None - Immunizations Immunizations up to date: Yes Hx Diphtheria, Pertussis, Tetanus Vaccination: Yes Review of Systems - Review of Systems Notes: Constitutional: Positive for fever. HENT: Negative for sore throat. Eyes: Negative for visual changes. Cardiovascular: Negative for chest pain. Respiratory: Positive for shortness of breath. Positive for dry cough. Gastrointestinal: Positive for generalized abdominal pain. Positive for diarrhea. Genitourinary: Negative for dysuria. Musculoskeletal: Negative for back pain. Skin: Negative for rash. Neurological: Negative for headaches, weakness or numbness. 10 point ROS negative except as marked above and in HPI. Physical Exam - Vital signs Vitals: Temp Pulse Resp BP Pulse Ox 99.1 F 97 20 123/55 L 100 05/12/20 18:15 05/12/20 18:15 05/12/20 18:15 05/12/20 18:15 05/12/20 18:15 - Notes Notes: CONSTITUTIONAL: Patient is illappearing. She is in mild distress. SKIN: Warm, dry, and intact without rash EYES: Extraocular movements are grossly intact, clear conjunctiva HENT: Normocephalic, atraumatic, moist mucus membranes NECK: No obvious swelling, normal range of motion PULMONARY: Normal chest rise and fall. Breath sounds diminished bilaterally. No respiratory distress or stridor CARDIOVASCULAR: Regular rate. No murmurs, rubs, gallops. Distal extremities are warm and well perfused. ABDOMINAL: The abdomen is soft. There is some distention with generalized tenderness. There is no rebound tenderness or guarding noted. NEUROLOGIC: Normal speech, moves all extremities. MUSCULOSKELETAL: No gross deformities, atraumatic PSYCHIATRIC: Normal mood and affect Course - Re-evaluation Re-evalutation: 05/13/20 00:32 Rechecked patient who has responded well to treatment in the ER. Discussed with patient: results, diagnosis, treatment plan, and need for follow-up. Return to the emergency department warnings were given. All questions and concerns were addressed. The plan is agreed with and understood. Patient is stable and ready for discharge. - Vital Signs Vital signs: Temp Pulse Resp BP Pulse Ox 99.1 F 97 20 123/55 L 100 05/12/20 18:15 05/12/20 18:15 05/12/20 18:15 05/12/20 18:15 05/12/20 18:15 - Laboratory Result Diagrams: 05/12/20 22:29 05/12/20 21:25 Laboratory results interpreted by me: 05/12/20 05/12/20 21:25 22:29 WBC 14.1 H RBC 2.59 L Hgb 8.7 L Hct 24.4 L MCH 33.5 H Seg Neuts % (Manual) 37 L Band Neutrophils % 1 L Lymphocytes % (Manual) 58 H Monocytes % (Manual) 2 L Abs Lymphs (Manual) 8.3 H Sodium 129.0 L Chloride 94 L BUN 6 L Glucose 125 H AST 53 H Albumin 3.2 L - Diagnostic Test Radiology reviewed: Reports reviewed - Consults Hospitalist Consult Time consulted: 00:32 Reason for consultation: 05/13/20 00:32 This case was discussed with the hospitalist. The patient is not requiring oxygen and has responded well to treatment the emergency room. He feels like the diarrhea is likely caused by the use of a azithromycin and Augmentin. The patient is felt to have very little benefit with admission. I have discussed this with the patient's caregiver and the patient. They are comfortable with the disposition and will return if her condition worsens. Discharge - Discharge Clinical Impression: Pneumonia due to COVID-19 virus Condition: Stable Disposition: HOME, SELF-CARE Instructions: Viral Pneumonia ([facility]) Referrals: MARYJANE PERKINS PA-C [PHYSICIAN BIOLOGY RESEARCH ASSISTANT] - Follow up as needed
[2020-05-12 23:07] LABS: MEAN CORPUSCULAR VOLUME 94 fl (80-97)
[2020-05-12 23:12] LABS: ABSOLUTE LYMPHOCYTES# (MANUAL) 8.3 10^3/uL (0.5-4.7); ABSOLUTE MONOCYTES # (MANUAL) 0.3 10^3/uL (0.1-1.4); BAND NEUTROPHILS % (MANUAL) 1 % (3-5); BASOPHILS % (MANUAL) 0 % (0-2); EOSINOPHILS % (MANUAL) 0 % (0-6); LYMPHOCYTES % (MANUAL) 58 % (13-45); METAMYELOCYTES % (MANUAL) 1 % (0-1); MONOCYTES % (MANUAL) 2 % (3-13); SEGMENTED NEUTROPHILS % (MAN) 37 % (42-78); TOTAL CELLS COUNTED 100
[2020-05-12 23:21] LABS: PLATELET COMMENT ADEQUATE; POLYCHROMASIA SLIGHT
[2020-05-13 01:44] VITALS: BP 116/84
== END 2020-05-13 01:44 | disposition home or self-care (01) ==
LOC: ER 18:07
DX: U07.1 COVID-19 (principal); J12.89 Other viral pneumonia; R05 Cough; R06.02 Shortness of breath; R19.7 Diarrhea, unspecified; R10.84 Generalized abdominal pain
CPT/HCPCS: 99284; 36415; 87040; 87070; 87880; 83605; 85025; 87077; 80053; 87804; 87150 ×26; 71045; U0003; C9803; 87635

== ENCOUNTER → 2020-06-06 | Outpatient (CLI) | payer MEDICARE, MEDICAID ==
--- NOTE | 2020-06-06 11:10 | RADIOLOGY REPORT (SQ) ---
EXAM DESCRIPTION: CHEST 2 VIEWS IMAGES COMPLETED DATE/TIME: 06/06/2020 9:30 am REASON FOR STUDY: COUGH/HX OF VIRAL PNEUMONIA COMPARISON: 05/26/2020 EXAM PARAMETERS: NUMBER OF VIEWS: two views TECHNIQUE: Digital Frontal and Lateral radiographic views of the chest acquired. RADIATION DOSE: NA LIMITATIONS: none FINDINGS: LUNGS AND PLEURA: No opacities, masses or pneumothorax. No pleural effusion. MEDIASTINUM AND HILAR STRUCTURES: No masses or contour abnormalities. HEART AND VASCULAR STRUCTURES: Heart normal size. No evidence for failure. BONES: No acute findings. HARDWARE: None in the chest. OTHER: No other significant finding. IMPRESSION: NO ACUTE RADIOGRAPHIC FINDING IN THE CHEST. TECHNICAL DOCUMENTATION: JOB ID: [id number] 2010 [employer]- All Rights Reserved Reading location - IP/workstation name: [email or web address]
== END ==
LOC: RAD 09:16
PROVIDERS: ATTEND Physician Assistant
DX: R05 Cough (principal); Z87.01 Personal history of pneumonia (recurrent)
CPT/HCPCS: 71046